=== PATIENT | female | born 1980 | race Caucasian/White ===

== ENCOUNTER 2019-05-03 13:15 | Emergency (ER) | payer OTHER ==
--- NOTE | 2019-05-03 13:33 | ER Document Report ---
ED Medical Screen (RME) - General Chief Complaint: Chest Pain Stated Complaint: CHEST PAIN Time Seen by Provider: 05/03/19 13:28 Mode of Arrival: Ambulatory Information source: Patient Notes: 38-year-old female presented to ED today for chest comfort that started yesterday. She states she drove from [place] to [place] yesterday. She states during the drive she was yawning a lot and sighing a lot was not really short of breath but it was uncomfortable. She states whenever she got up to walk she felt like her pulse was racing and she really had to exert herself. She denies use of alcohol cigarettes or drugs. She states she had asthma with as a baby but no other cardiac or respiratory history. Blood pressure 13 7/85, pulse 94, pulse ox 99, and respirations 16. Lungs are clear to auscultation. She states she does get a little dizzy when she takes deep breaths. She does have tenderness to the left upper chest area. I have greeted and performed a rapid initial assessment of this patient. A comprehensive ED assessment and evaluation of the patient, analysis of test results and completion of medical decision making process will be conducted by an additional ED providers. - Related Data Allergies/Adverse Reactions: mold Allergy (Verified 10/07/18 12:38) pollen extracts Allergy (Verified 10/07/18 12:38) Past Medical History - Past Medical History Cardiac Medical History: Reports: Hx Hypercholesterolemia Renal/ Medical History: Denies: Hx Peritoneal Dialysis
[2019-05-03] MEDS ORDERED: ASPIRIN 81 MG TABLET, CHEWABLE PO ONE (13:34)
[2019-05-03 13:56] LABS: ABSOLUTE LYMPHOCYTES (AUTO) 1.6 10^3/uL (0.5-4.7); ABSOLUTE MONOCYTES (AUTO) 0.5 10^3/uL (0.1-1.4); ABSOLUTE NEUT (AUTO) 4.2 10^3/uL (1.7-8.2); BASOPHILS % (AUTO) 0.5 % (0-2); EOSINOPHILS % (AUTO) 0.7 % (0-6); HEMATOCRIT 41.6 % (36.0-47.0); HEMOGLOBIN 14.3 g/dL (12.0-15.5); LYMPHOCYTES % (AUTO) 25.2 % (13-45); MEAN CORPUSCULAR HEMOGLOBIN 29.5 pg (27.0-33.4); MEAN CORPUSCULAR HGB CONC 34.3 g/dL (32.0-36.0); MEAN CORPUSCULAR VOLUME 86 fl (80-97); MONOCYTES % (AUTO) 7.4 % (3-13); PLATELET COUNT 301 10^3/uL (150-450); RED BLOOD COUNT 4.85 10^6/uL (3.72-5.28); RED CELL DISTRIBUTION WIDTH 13.8 % (11.5-14.0); SEGMENTED NEUTROPHILS % (AUTO) 66.2 % (42-78); TOTAL CELLS COUNTED % (AUTO) 100 %; WHITE BLOOD COUNT 6.4 10^3/uL (4.0-10.5)
[2019-05-03 14:06] LABS: APPEARANCE,URINE CLOUDY; BILIRUBIN,URINE NEGATIVE (NEGATIVE); COLOR,URINE YELLOW; GLUCOSE, URINE NEGATIVE (NEGATIVE); KETONES,URINE NEGATIVE (NEGATIVE); PROTEIN,URINE 30 mg/dL (NEGATIVE); URINE SPECIFIC GRAVITY 1.025; UROBILINOGEN,URINE NEGATIVE mg/dL (<2.0)
--- NOTE | 2019-05-03 14:13 | RADIOLOGY REPORT (SQ) ---
EXAM DESCRIPTION: CHEST 2 VIEWS COMPLETED DATE/TIME: 05/03/2019 1:58 pm REASON FOR STUDY: chest discomfort COMPARISON: 10/07/2018 EXAM PARAMETERS: NUMBER OF VIEWS: two views TECHNIQUE: Digital Frontal and Lateral radiographic views of the chest acquired. RADIATION DOSE: NA LIMITATIONS: none FINDINGS: LUNGS AND PLEURA: No opacities, masses or pneumothorax. No pleural effusion. MEDIASTINUM AND HILAR STRUCTURES: No masses or contour abnormalities. HEART AND VASCULAR STRUCTURES: Heart normal size. No evidence for failure. BONES: No acute findings. HARDWARE: None in the chest. OTHER: No other significant finding. IMPRESSION: No acute abnormality of the lungs. No focal airspace opacity. TECHNICAL DOCUMENTATION: JOB ID: [id number] [employer]- All Rights Reserved Reading location - IP/workstation name: [email or web address]
[2019-05-03 14:25] LABS: ALBUMIN 4.5 g/dL (3.5-5.0); ALKALINE PHOSPHATASE 66 U/L (38-126); ANION GAP 13 (5-19); ASPARTATE AMINO TRANSFERASE 23 U/L (14-36); BILIRUBIN,DIRECT 0.1 mg/dL (0.0-0.4); BILIRUBIN,TOTAL 0.9 mg/dL (0.2-1.3); BLOOD UREA NITROGEN 12 mg/dL (7-20); CALCIUM 10.4 mg/dL (8.4-10.2); CARBON DIOXIDE 26 mmol/L (22-30); CHLORIDE 105 mmol/L (98-107); GLUCOSE 110 mg/dL (75-110); POTASSIUM 4.1 mmol/L (3.6-5.0); TOTAL PROTEIN 7.6 g/dL (6.3-8.2)
[2019-05-03 14:35] LABS: NT PRO BNP 31 pg/mL (<125)
[2019-05-03 14:36] LABS: TROPONIN I < 0.012 ng/mL
[2019-05-03] MEDS ORDERED: LIDOCAINE 2% VISCOUS SOLN 20 ML UDCUP PO ONE (15:24)
[2019-05-03] MEDS ORDERED: MAG HYDROX/AL HYDROX/SIMETH SUSP 30 ML UDCUP PO ONE (15:24)
--- NOTE | 2019-05-03 15:51 | ER Document Report ---
ED General - General Chief Complaint: Chest Pain Stated Complaint: CHEST PAIN Time Seen by Provider: 05/03/19 13:28 Mode of Arrival: Ambulatory TRAVEL OUTSIDE OF THE [place] IN LAST 30 DAYS: No - HPI Notes: 38-year-old female to the emergency department with complaints of epigastric abdominal pain that began about a week ago that then progressed to chest discomfort and exertional shortness of breath in the past 24 hours. She states that she just drove from [place] to here which is a trip she normally takes. She denies any leg swelling or history of DVT. She is not on oral c ontraceptives. She states that she was driving she began to have "incomplete yawns" she states that when she got up for a break in the car she noticed that she was having little bit more difficulty walking. She states that she felt like she was a little short of breath and she would start to feel little bit of chest pain. She states that with her apple watch she noticed that her heart rate went up to 157. She denies any diaphoresis, nausea or vomiting. She states that she has had a fast heart rate in the past and has worn a Holter monitor for 24 to 48 hours but nothing was found. She denies any past medical history for thyroid dysfunction. She does admit that she has had some low pota ssium before but it has not been an issue in several years. She does not smoke, she is not diabetic, she is not hypertensive, and she does not have known hyperlipidemia. She states that she attempted to walk around the store today with her family and really was struggling with that and so decided to seek medical attention. Does report that she attempted to go to urgent care first and they did an EKG on her which showed that her heart rate was fast. She states that they sent her here for further evaluation. - Related Data Allergies/Adverse Reactions: mold Allergy (Verified 05/03/19 13:29) pollen extracts Allergy (Verified 05/03/19 13:29) Past Medical History - General Information source: Patient - Social History Smoking Status: Never Smoker Chew tobacco use (# tins/day): No Frequency of alcohol use: None Drug Abuse: None Family History: Reviewed & Not Pertinent Patient has suicidal ideation: No Patient has homicidal ideation: No - Past Medical History Cardiac Medical History: Reports: Hx Hypercholesterolemia Endocrine Medical History: Reports: Hx Diabetes Mellitus Type 2 - Prediabetic Renal/ Medical History: Denies: Hx Peritoneal Dialysis Review of Systems - Review of Systems Constitutional: denies: Chills, Diaphoresis, Fever EENT: No symptoms reported Cardiovascular: Chest pain, Palpitations, Heart racing, Dyspnea. denies: Syncope, Dizziness, Lightheaded Respiratory: Short of breath. denies: Cough Gastrointestinal: denies: Abdominal pain, Diarrhea, Nausea, Vomiting Genitourinary: No symptoms reported Musculoskeletal: No symptoms reported Hematologic/Lymphatic: No symptoms reported Neurological/Psychological: No symptoms reported -: Yes All other systems reviewed and negative Physical Exam - Vital signs Vitals: Temp Pulse Resp BP Pulse Ox 98 F 94 16 137/85 H 99 05/03/19 13:29 05/03/19 13:29 05/03/19 13:29 05/03/19 13:05/03/19 13:29 Interpretation: Normal - General General appearance: Appears well, Alert In distress: None - HEENT Head: Normocephalic, Atraumatic Eyes: Normal Pupils: PERRL Ears: Normal External canal: Normal Tympanic membrane: Normal Sinus: Normal Nasal: Normal Mouth/Lips: Normal Mucous membranes: Normal Pharynx: Normal. No: Potential airway comprom. Neck: Normal, Supple. No: Lymphadenopathy, Meningismus - Respiratory Respiratory status: No respiratory distress. No: Labored, Pursed lip breathing, Retractions, Tachypnea, Tripod position Chest status: Nontender. No: Accessory muscle use Breath sounds: Normal. No: Rales, Rhonchi, Wheezing Chest palpation: Normal - Cardiovascular Rhythm: Regular Heart sounds: Normal auscultation Murmur: No - Abdominal Inspection: Normal Distension: No distension Bowel sounds: Normal Tenderness: Nontender. No: Tender, McBurney's point, Kaur's sign, Guarding, Rebound Organomegaly: No organomegaly - Back Back: Normal, Nontender. No: Deformity/step-off, CVA tenderness, Vertebra tenderness - Neurological Neuro grossly intact: Yes Cognition: Normal Orientation: AAOx4 Drew Coma Scale Eye Opening: Spontaneous Drew Coma Scale Verbal: Oriented Drew Coma Scale Motor: Obeys Commands [place] Coma Scale Total: 15 Speech: Normal Cranial nerves: Normal. No: Facial palsy, Forehead sparing Cerebellar coordination: Normal. 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 No: Pronator drift Sensory: Normal - Psychological Associated symptoms: Normal affect, Normal mood - Skin Skin Temperature: Warm Skin Moisture: Dry Skin Color: Normal Course - Re-evaluation Re-evalutation: 05/03/19 Laboratory 05/03/19 05/03/19 05/03/19 13:37 13:37 13:37 WBC 6.4 RBC 4.85 Hgb 14.3 Hct 41.6 MCV 86 MCH 29.5 MCHC 34.3 RDW 13.8 Plt Count 301 Lymph % (Auto) 25.2 Dawson % (Auto) 7.4 Eos % (Auto) 0.7 Baso % (Auto) 0.5 Absolute Neuts (auto) 4.2 Absolute Lymphs (auto) 1.6 Absolute Monos (auto) 0.5 Absolute Eos (auto) 0.0 Absolute Basos (auto) 0.0 Seg Neutrophils % 66.2 Sodium 143.9 Potassium 4.1 Chloride 105 Carbon Dioxide 26 Anion Gap 13 BUN 12 Creatinine 1.00 Est GFR ( Amer) > 60 Est GFR (MDRD) Non-Af > 60 Glucose 110 Calcium 10.4 H Magnesium 1.9 Total Bilirubin 0.9 Direct Bilirubin 0.1 Neonat Total Bilirubin Not Reportable Neonat Direct Bilirubin Not Reportable Neonat Indirect Bili Not Reportable AST 23 ALT 18 Alkaline Phosphatase 66 Troponin I < 0.012 NT-Pro-B Natriuret Pep 31 Total Protein 7.6 Albumin 4.5 Lipase 123.9 Serum HCG, Qual Urine Color Urine Appearance Urine pH Ur Specific [place] Urine Protein Urine Glucose (UA) Urine Ketones Urine Blood Urine Nitrite (Reflex) Urine Bilirubin Urine Urobilinogen Leukocyte Esterase Rfl Urine RBC (Auto) Urine Bacteria (Auto) Urine WBC (Reflex) Squamous Epi Cells Auto Urine Mucus (Auto) Urine Ascorbic Acid 05/03/19 05/03/19 13:37 13:37 WBC RBC Hgb Hct MCV MCH MCHC RDW Plt Count Lymph % (Auto) Dawson % (Auto) Eos % (Auto) Baso % (Auto) Absolute Neuts (auto) Absolute Lymphs (auto) Absolute Monos (auto) Absolute Eos (auto) Absolute Basos (auto) Seg Neutrophils % Sodium Potassium Chloride Carbon Dioxide Anion Gap BUN Creatinine Est GFR ( Amer) Est GFR (MDRD) Non-Af Glucose Calcium Magnesium Total Bilirubin Direct Bilirubin Neonat Total Bilirubin Neonat Direct Bilirubin Neonat Indirect Bili AST ALT Alkaline Phosphatase Troponin I NT-Pro-B Natriuret Pep Total Protein Albumin Lipase Serum HCG, Qual NEGATIVE Urine Color YELLOW Urine Appearance CLOUDY Urine pH 6.0 Ur Specific [place] 1.025 Urine Protein 30 H Urine Glucose (UA) NEGATIVE Urine Ketones NEGATIVE Urine Blood NEGATIVE Urine Nitrite (Reflex) NEGATIVE Urine Bilirubin NEGATIVE Urine Urobilinogen NEGATIVE Leukocyte Esterase Rfl TRACE H Urine RBC (Auto) 4 Urine Bacteria (Auto) 1+ Urine WBC (Reflex) 5 Squamous Epi Cells Auto 7 Urine Mucus (Auto) MANY Urine Ascorbic Acid NEGATIVE Chest X-Ray 05/03/19 13:33 IMPRESSION: No acute abnormality of the lungs. No focal airspace opacity. 05/03/19 Patient has done well in the emergency department today. She had relief of her symptoms particularly with the midsternal chest pain and upper abdominal pain with GI cocktail. She states that she feels much better. She is able to ambulate in the emergency department without any symptoms of exertional dyspnea. She has had very stable vital signs since arrival. She has not been tachycardic for some time. She has 2 negative trending troponins. Will send home with [facility] for the reflux and then have her follow-up with her primary care physician and [place] for further evaluation for palpitations. She agrees with the plan. Discharge home. - Vital Signs Vital signs: Temp Pulse Resp BP Pulse Ox 98 F 94 15 110/78 97 05/03/19 13:29 05/03/19 13:29 05/03/19 17:01 05/03/19 17:01 05/03/19 14:11 - Laboratory Result Diagrams: 05/03/19 13:37 05/03/19 13:37 Laboratory results interpreted by me: 05/03/19 05/03/19 13:37 13:37 Calcium 10.4 H Urine Protein 30 H Leukocyte Esterase Rfl TRACE H - Diagnostic Test Radiology reviewed: Image reviewed, Reports reviewed - EKG Interpretation by [facility] EKG shows normal: Sinus rhythm Rate: Normal Rhythm: NSR When compared to previous EKG there are: No significant change Additional EKG results interpreted by me: 05/03/19 No STEMI, no ST changes, normal axis, no LVH. This is not significantly different from prior on October 07, 2018 Discharge - Discharge Clinical Impression: Palpitation, Chest pain, GERD (gastroesophageal reflux disease) Condition: Stable Disposition: HOME, SELF-CARE Instructions: Palpitations (Irregular or Rapid Heartrate) ([facility]), Reflux Disease (GERD) ([facility]) Additional Instructions: FOLLOW UP WITH PRIMARY CARE AT [place] AND FOLLOW UP WITH CARDIOLOGY THERE. RETURN IF WORSE. PUSH FLUIDS. REST. TAKE CARAFATE FOR REFLUX. Prescriptions: Sucralfate [Carafate] 1 gm PO QID #[id number] oral.susp
--- NOTE | 2019-05-03 17:16 | EKG REPORT ---
SEVERITY:- NORMAL ECG - SINUS RHYTHM : Confirmed by: Narciso Mitchell MD 03-May-2019 17:16:27
[2019-05-03 19:24] VITALS: BP 121/87
== END 2019-05-03 19:24 | disposition home or self-care (01) ==
LOC: ER 13:15
DX: R00.2 Palpitations (principal); R07.9 Chest pain, unspecified; K21.9 Gastro-esophageal reflux disease without esophagitis
CPT/HCPCS: 93005; 99285; 36415; 83690; 83735; 84443; 84703; 85025; 80053; 81001; 84484; 83880; 71046; 93010; J3490